=== PATIENT | female | born 1985 | race Caucasian/White ===

== ENCOUNTER 2024-05-14 10:55 | Outpatient (REF) | payer OTHER, SELFPAY | END 2024-05-14 10:56 | disposition home or self-care (01) | LOC: HO.LNP 10:55 | PROVIDERS: PCP Internal Medicine; Visit Provider Advanced Practice Midwife | DX: Z13.89 Encounter for screening for other disorder (principal) ==

== ENCOUNTER 2024-05-14 10:55 | Outpatient (AMB) | payer OTHER, SELFPAY ==
[2024-05-14 11:01] VITALS: BP 112/68; BMI 32.4
--- NOTE | 2024-05-14 11:01 | MHC.OFFVIS ---
Vital Signs 05/14/24 11:01 Height 5 ft 2 in Weight 177 lb BMI 32.4 BP 112/68 Intake Visit Reasons: New patient Annual Sack Department Supervisor Required: No Sack Department Supervisor Services: Sack Department Supervisor Present Information Interpreted: clinical only Blocking Machine Tender: Blocking Machine Tender Present Allergies No Known Allergies Allergy (Unverified 05/14/24 11:04) Medication List - Last Reconciled 05/14/24 by Rosemarie Overton CNM bupropion HCl SR (Wellbutrin SR) 200 mg PO DAILY buspirone 5 mg PO BID cetirizine (Zyrtec) 10 mg PO DAILY PRN famotidine (Acid [place] (famotidine)) 10 mg PO DAILY fluticasone propionate 50 mcg/actuation (Flonase Allergy Relief) 1 spray intranasal DAILY Is last menstrual period known: Yes Last menstrual period: 04/29/24 Do you need a note to return to daycare/school/sports/work: No HPI HPI New patient Annual: Details: Here is a new patient annual. she used to see Dr. Ferrari and she has a history of abnormal Pap smears and she remembers having a colposcopy with 1 of the doctors was here temporarily many years ago. She believes her last Pap smear [place] was negative. She wonders how long she will have to get Pap smears she has a primary through [place] that she saw on [address] but that person has less so she will be changing to a new 1. She was recommended to go get genetic testing because of her mother having breast cancer but she does not want to because she knows it is going to just make her more anxious and nervous. She does not know if her mother had genetic testing and in fact she was actually questioning the diagnosis because she thought the results of what was removed was benign. Her has a vasectomy she has no worries about STDs but is open to the vaginal testing. [facility] Medical History (Updated 05/14/24 @ 11:50 by Rosemarie Overton CNM) H/O gastroesophageal reflux (GERD) Anxiety Depression Surgical History (Updated 05/14/24 @ 11:08 by Chloe Jiang CMA) History of appendectomy Family History (Updated 05/14/24 @ 11:10 by Chloe Jiang CMA) Maternal Grandfather Liver cancer Maternal Aunt Breast cancer Mother Diabetes Father HTN (hypertension) Social History (Updated 05/14/24 @ 11:11 by Chloe Jiang [facility]) Alcohol intake: current Alcohol intake frequency: a few times a month Patient Tobacco Use Status: Former Tobacco user Female Reproductive History Menstrual Age of Menarche: 12 Duration of menses: 3-5 days Date of last menstrual period: 04/29/24 control method: none and other Total pregnancies: 3 Full term: 2 History of abnormal pap smear: Yes (unsure date) Physical Exam Vital Signs: Last Vital Signs BP 112/68 05/14/24 11:01 BMI result Body Mass Index 32.4 Const General: healthy appearing, comfortable, no acute distress, well developed and alert Nutritional Appearance: average body habitus Orientation/consciousness: patient oriented x3 Limitations: no limitations HEENT Head: Yes normocephalic Neck Neck: Yes normal visual inspection Chest Chest palpation & inspection: normal inspection of the chest Breast/axilla inspection: normal inspection of the breasts and normal inspection of the axillae Breast/axilla palpation: normal palpation of the breasts and normal palpation of the axillae Resp Effort & Inspection: normal respiratory effort GI Inspection: Yes normal to inspection, No Abdominal wall edema and No distended Palpation (GI): Soft to palpation and nontender Other: External exam within normal limits vagina pink moist cervix multiparous with clear abundant fertile mucus. Uterus small midposition nontender adnexa nontender good tone with Kegel. General: Yes bladder normal to palpation External Female Exam: normal external appearance and normal appearance of the urethra Speculum Exam - Vagina: normal appearance of the vagina, normal palpation and normal vaginal discharge Speculum Exam - Cervix: normal appearance of the cervix, normal palpation and nontender Bimanual exam- vagina & uterus: normal bimanual exam, normal palpation, uterine size normal, bladder normal to palpation, consistency normal, normal palpation, uterine mobility normal, uterine shape normal, No Cervical tenderness present, non-tender and no cervical motion tenderness Bimanual Exam- Adnexa, other: normal adnexae, no masses, normal and No adnexal tenderness Neuro General: patient oriented x3 Assessment & Plan Assessment & Plan (1) Well woman exam with routine gynecological exam: Code(s): Z01.419 - Encounter for gynecological examination (general) (routine) without abnormal findings Category: Medical (2) History of abnormal Pap smear: Comment: Remembers many abnormals and close follow-up and colposcopy, believes last several years ago in [place] that was negative Code(s): Z87.898 - Personal history of other specified conditions Category: Medical (3) Family history of breast cancer in first degree relative: Comment: Says she was referred to genetic counseling, but is not interested going see note. Code(s): Z80.3 - Family history of malignant neoplasm of breast Category: Medical (4) Relies on partner's vasectomy for primary method of contraception: Code(s): Z78.9 - Other specified health status Category: Social Hx Plan -----Discussed in this visit the following: healthy balanced diet, regular and consistent exercise, getting recommended health screens, doing the best she can for her particular health concerns, kegel exercises, pap smear screening and followup recommendations, mammography screening and SBE, normal changes in cycles in her life stage--- . Extensive teaching about normal menstrual cycles and the changes. Also extensive teaching about Pap smear screening HPV and HPV vaccines and recommendations for screening and testing throughout the lifetime both current and past. If this Pap smear is negative she may not need another Pap smear for 5 years however discussed all the possibilities because she is enquiring as to whether not she could ever go without Pap smear screening discussed that currently ASCCP guidelines recommend testing up to age 65. Discussed that Pap smear screening and menopause are not related to each other . I do recommend that she have a conversation her mother and find out if her mom had the BRCA testing and if it was negative then she may be able to relax. If however her mom did not she may want to reconsider her primary care's recommendation for her to go for the genetic testing for which she has been referred. Mammograms probably start at age 40 unless recommended otherwise. Discussed exercise and self-care. Discussed menstrual changes throughout the cycle in some detail. Coding Level of Care Code New Pt Prev Care 18-39yr([id number] Diagnoses Well woman exam with routine gynecological exam Z01.419 History of abnormal Pap smear Z87.898 Family history of breast cancer in first degree relative Z80.3 Relies on partner's vasectomy for primary method of contraception Z78.9
== END 2024-05-14 11:54 | disposition home or self-care (01) ==
LOC: HO.HWSM 10:55
PROVIDERS: PCP Internal Medicine; Visit Provider Advanced Practice Midwife
DX: Z01.419 Encounter for gynecological examination (general) (routine) without abnormal findings (principal); Z87.898 Personal history of other specified conditions; Z80.3 Family history of malignant neoplasm of breast; Z78.9 Other specified health status
CPT/HCPCS: 99385

== ENCOUNTER 2024-05-14 11:45 | Outpatient (REF) | payer OTHER, SELFPAY ==
[2024-05-15 04:49] LABS: CT PCR NOT DETECTED (Not Detect.); NG PCR NOT DETECTED (Not Detect.)
[2024-05-15 11:48] LABS: Bacterial Vaginosis PCR NEGATIVE (Negative); Candida Group PCR NOT DETECTED (Not Detect); Candida glab krusei PCR NOT DETECTED (Not Detect); Trichomonas vaginalis PCR NOT DETECTED (Not Detect)
[2024-05-21 16:58] LABS: HPV mRNA E6/E7 Not Detected (Not Detected)
== END 2024-05-14 11:46 | disposition home or self-care (01) ==
LOC: HO.LAB 11:45
PROVIDERS: Visit Provider Advanced Practice Midwife
DX: N89.8 Other specified noninflammatory disorders of vagina (principal); Z11.3 Encounter for screening for infections with a predominantly sexual mode of transmission
CPT/HCPCS: 0352U; 87491; 87591; 87624; 88175

== ENCOUNTER 2024-09-12 11:34 | Outpatient (AMB) | payer OTHER, SELFPAY ==
[2024-09-12 11:59] VITALS: BP 140/78; BMI 33.8
--- NOTE | 2024-09-12 11:59 | MHC.OFFVIS ---
Vital Signs 09/12/24 11:59 Height 5 ft 2 in Weight 185 lb BMI 33.8 BP 140/78 H Intake Visit Reasons: Repeat pap Panama Hat Smearer Required: No Information Interpreted: clinical only Supervisor Porcelain Department: Supervisor Porcelain Department Present Allergies No Known Allergies Allergy (Unverified 09/12/24 12:00) Medication List - Last Reconciled 09/12/24 by Rosemarie Overton CNM bupropion HCl SR (Wellbutrin SR) 200 mg PO DAILY buspirone 5 mg PO BID cetirizine (Zyrtec) 10 mg PO DAILY PRN famotidine (Acid [place] (famotidine)) 10 mg PO DAILY fluticasone propionate 50 mcg/actuation (Flonase Allergy Relief) 1 spray intranasal DAILY Is last menstrual period known: Yes Last menstrual period: 08/23/24 HPI HPI Repeat pap: Details: Patient is here for repeat Pap smear. She is her has a vasectomy she does not have any other concerns she had a primary care provider but they left the system she was in at [place] but she is on a list for another. [facility] Medical History H/O gastroesophageal reflux (GERD) Anxiety Depression Surgical History History of appendectomy Family History Maternal Grandfather Liver cancer Maternal Aunt Breast cancer Mother Diabetes Father HTN (hypertension) Social History Alcohol intake: current Alcohol intake frequency: a few times a month Patient Tobacco Use Status: Former Tobacco user Female Reproductive History Menstrual Age of Menarche: 12 Date of last menstrual period: 08/23/24 control method: other (vasectomy) Total pregnancies: 2 Full term: 2 Date of last pap smear: 05/14/24 (unsatisfactory) History of abnormal pap smear: Yes Physical Exam Vital Signs: Last Vital Signs BP 140/78 H 09/12/24 11:59 BMI result Body Mass Index 33.8 Other: External exam within normal limits vagina and moist clear discharge cervix multiparous pink clear not really friable with Pap smear taken Cytobrush and scraping tool as per usual,(previous Pap came back unsatisfactory for no good reason) External Female Exam: normal external appearance and normal appearance of the urethra Speculum Exam - Vagina: normal appearance of the vagina and normal vaginal discharge Speculum Exam - Cervix: normal appearance of the cervix and Cervical os closed Assessment & Plan Assessment & Plan (1) History of abnormal Pap smear: Comment: Remembers many abnormals and close follow-up and colposcopy, believes last several years ago in [place] that was negative; Pap is deemed unsatisfactory secondary to insufficient squamous cells needs repeat.; Pap smear repeated 09/12/2024 Code(s): Z87.898 - Personal history of other specified conditions Category: Medical (2) Family history of breast cancer in first degree relative: Comment: Says she was referred to genetic counseling, but is not interested going see note. Code(s): Z80.3 - Family history of malignant neoplasm of breast Category: Medical Plan Pap smear was done. Cervix appeared healthy we will await the results Pap discussed the recommendations full Peds in 1 year patient hopefully getting care provider this year discussed that mammograms with start next year. See previous visit for full discussion. Coding Level of Care Code Est Pt Level 3 (42032) Diagnoses History of abnormal Pap smear Z87.898 Family history of breast cancer in first degree relative Z80.3
== END 2024-09-12 12:22 | disposition home or self-care (01) ==
PROVIDERS: PCP Internal Medicine; Visit Provider Advanced Practice Midwife
DX: Z87.898 Personal history of other specified conditions (principal); Z80.3 Family history of malignant neoplasm of breast
CPT/HCPCS: 99213

== ENCOUNTER 2024-09-12 11:34 | Outpatient (REF) | payer OTHER, SELFPAY ==
[2024-09-15 10:28] LABS: HPV 16,18/45 See PAP report
== END 2024-09-12 11:35 | disposition home or self-care (01) ==
LOC: HO.LNP 11:34
PROVIDERS: PCP Internal Medicine; Visit Provider Advanced Practice Midwife
DX: Z00.00 Encounter for general adult medical examination without abnormal findings (principal)
CPT/HCPCS: 87624; 88175